=== PATIENT | male | born 1965 | race Caucasian/White ===

== ENCOUNTER 2019-06-13 17:07 | Emergency (ER) | payer OTHER ==
[~2019-06-13] VITALS: Ht 190.5 cm; Wt 98.0 kg
[2019-06-13] MEDS ORDERED: GLIMEPIRIDE4 MG PO (17:22)
[2019-06-13] MEDS ORDERED: METFORMIN HCL500 M3 PO (17:22)
[2019-06-13] MEDS ORDERED: ATORVASTATIN CA10 MG PO (17:23)
[2019-06-13] MEDS ORDERED: VICTOZA 3-0.6 MG/0.1 SUBQ (17:23)
[2019-06-13] MEDS ORDERED: LISINOPRIL10 MG PO (17:24)
[2019-06-13 18:52] LABS: ABSOLUTE NEUTROPHILS 5.4 thou/uL (1.4-8.2); BASOPHILS 0.7 % (0.0-2.0); EOSINOPHILS 1.7 % (0.0-3.0); HEMATOCRIT 47.6 % (42.0-52.0); HEMOGLOBIN 16.3 gm/dL (14.0-18.0); LYMPHOCYTES 24.6 % (24.0-44.0); MCH 31.8 pg (26.0-34.0); MCHC 34.2 g/dL (28.0-37.0); MCV 93.1 fL (80.0-100.0); PLATELET COUNT 236 thou/uL (150-400); RBC 5.11 mil/uL (4.50-6.00); RDW 13.4 % (10.5-14.5); WBC 8.1 thou/uL (4.0-11.0)
[2019-06-13 19:04] LABS: CALCIUM 9.4 mg/dL (8.5-10.1); CREATININE 0.9 mg/dL (0.7-1.3); MAGNESIUM 1.6 mg/dL (1.8-2.4); POTASSIUM 3.7 mmol/L (3.5-5.1)
[2019-06-13] MEDS ORDERED: MECLIZINE HCL25 M1 PO (19:51)
[2019-06-13 20:18] VITALS: BP 120/75
--- NOTE | 2019-06-16 14:46 | EKG ---
[facility] [address] [address] ELECTROCARDIOGRAM REPORT Name: DUGLAS REES Room #: DEP [facility]#: [id number] Admission: 06/13/19 Attend Phys: Discharge: 06/13/19 Date of : 61 Report #: [id number] THIS REPORT FOR: //name// [facility] ED Test Date: 2019-06-13 Test Time: 17:31:10 Pat Name: DUGLAS REES Department: Room: Gender: M [employer] Operator: GORDO : 1965 Requested By: Martín Ruff Order Number: [id number] MD: Franklin Burgess Measurements Intervals [place] Rate: 64 P: 65 IN: 225 QRS: -55 QRSD: 116 T: 28 QT: 401 QTc: 414 Interpretive Statements Sinus rhythm Prolonged IN interval LAD, consider left anterior fascicular block Low voltage, precordial leads No previous ECG available for comparison Electronically Signed On 06-16-2019 14:45:55 RESPIRATORY SUPPORT TECHNICIAN by Franklin Burgess [email or web address] <ELECTRONICALLY SIGNED> By: Franklin Burgess MD 06/16/19 1445 30 30 Franklin Burgess MD /SELMA
== END 2019-06-13 20:18 | disposition home or self-care (01) ==
LOC: ER 17:07
PROVIDERS: Emergency Medicine
DX: R42 Dizziness and giddiness (principal)

== ENCOUNTER → 2020-10-11 | Outpatient (CLI) | payer OTHER ==
[~2020-10-11] MED LIST: ATORVASTATIN CA10 MG PO; GLIMEPIRIDE4 MG PO; LISINOPRIL10 MG PO; MECLIZINE HCL25 M1 PO; METFORMIN HCL500 M3 PO; VICTOZA 3-0.6 MG/0.1 SUBQ
== END ==
LOC: CAT 09:17
PROVIDERS: ATTEND Family Medicine
DX: Z12.2 Encounter for screening for malignant neoplasm of respiratory organs (principal); Z87.891 Personal history of nicotine dependence